=== PATIENT | female | born 1970 | race Caucasian/White ===

== ENCOUNTER 2017-06-08 17:51 | Emergency (ER) | payer OTHER ==
[~2017-06-08] VITALS: Ht 172.7 cm; Wt 77.1 kg
[2017-06-08 18:58] VITALS: BP 148/77
[2017-06-08] MEDS ORDERED: IBUPROFEN 600 MG TABLET PO ONE ×2 (19:30→20:04)
== END 2017-06-08 21:15 | disposition home or self-care (01) ==
LOC: ER 17:57
DX: M25.561 Pain in right knee (principal); J45.909 Unspecified asthma, uncomplicated; F17.200 Nicotine dependence, unspecified, uncomplicated
CPT/HCPCS: 73560; 99284; A4606; Z7610

== ENCOUNTER → 2020-08-16 | Emergency (ER) | payer OTHER ==
[~2020-08-16] VITALS: Ht 172.7 cm; Wt 75.7 kg
[~2020-08-16] MED LIST: KETOROLAC TROMETHAMINE 15 MG/ML VIAL ONE; POTASSIUM CHLORIDE 20 MEQ TAB.PRT.SR PO ONE
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
[2020-08-16] MEDS: KETOROLAC TROMETHAMINE INJ 30 MG/ML VIAL IM ONE (16:43)
[2020-08-16 17:00] LABS: BASOPHILS % (AUTO) 0.7 % (0.0-2.0); EOSINOPHILS % (AUTO) 3.8 % (0.0-6.0); HEMATOCRIT 43 % (33-45); HEMOGLOBIN 14.2 g/dL (11.5-14.8); LYMPHOCYTES # (AUTO) 1.3 /CMM (0.8-4.8); LYMPHOCYTES % (AUTO) 23.6 % (20.0-44.0); MEAN CORPUSCULAR HGB CONC 33 g/dl (31.0-36.0); MEAN CORPUSCULAR VOLUME 88 fL (82-100); MONOCYTES # (AUTO) 0.4 /CMM (0.1-1.30); MONOCYTES % (AUTO) 6.5 % (2.0-12.0); NEUTROPHILS # (AUTO) 3.6 /CMM (1.8-8.9); NEUTROPHILS % (AUTO) 65.4 % (43.0-81.0); PLATELET COUNT (AUTO) 257 /CMM (150-450); RED BLOOD CELL COUNT(AUTO) 4.94 MIL/uL (4.0-5.2); WHITE BLOOD COUNT (AUTO) 5.5 K/uL (4.3-11.0)
[2020-08-16 17:19] LABS: ALANINE AMINOTRANSFERASE 16 U/L (12-78); ALBUMIN 2.8 g/dL (3.4-5.0); ALKALINE PHOSPHATASE 121 U/L (46-116); ASPARTATE AMINOTRANSFERASE 17 U/L (15-37); BILIRUBIN,DIRECT 0.1 mg/dL (0.0-0.2); BILIRUBIN,TOTAL 0.4 mg/dL (0.2-1.0); CALCIUM, SERUM 8.8 mg/dL (8.5-10.1); CARBON DIOXIDE 31 mmol/L (21-32); CHLORIDE 106 mmol/L (98-107); GLUCOSE 111 mg/dL (74-106); POTASSIUM 3.1 mmol/L (3.5-5.1); SODIUM SERUM 143 mmol/L (136-145); TOTAL PROTEIN, SERUM 6.5 g/dL (6.4-8.2); UREA NITROGEN, BLOOD 7 mg/dL (7-18)
[2020-08-16] MEDS: POTASSIUM CHLORIDE 20 MEQ TAB.PRT.SR PO ONE (17:28)
[2020-08-16 17:48] LABS: LIPASE 166 U/L (73-393)
[2020-08-16 18:15] VITALS: BP 149/86
--- NOTE | 2020-08-16 18:16 | NUR ---
Patient discharged to home in stable condition. Written and verbal after care instructions given. Patient verbalizes understanding of instruction. The patient verbalized understanding.
== END | disposition home or self-care (01) ==
LOC: ER 15:57
DX: S20.212A Contusion of left front wall of thorax, initial encounter (principal); F17.200 Nicotine dependence, unspecified, uncomplicated; Z98.890 Other specified postprocedural states; W18.39XA Other fall on same level, initial encounter; Y93.89 Activity, other specified; Y92.89 Other specified places as the place of occurrence of the external cause; Y99.8 Other external cause status
CPT/HCPCS: 36415; 71100; 80048; 80076; 83690; 84484; 85025; 85730; 93005; 96372; 99285; 99406; J1885

== ENCOUNTER 2020-09-23 11:21 | Emergency (ER) | payer OTHER ==
[~2020-09-23] VITALS: Ht 172.7 cm; Wt 73.9 kg
--- NOTE | 2020-09-23 12:24 | NUR ---
PT REC;D TO ER SELF DROVE PT STATED C/O COUGH FOR 2 DAYS UA SENT TO LAB
--- NOTE | 2020-09-23 12:54 | NUR ---
AWAITING EVALUATION BY ER PROVIDER. po's given to pt
--- NOTE | 2020-09-23 13:24 | NUR ---
chest xray done vss
[2020-09-23] MEDS ORDERED: AZIT500T PO (13:51)
[2020-09-23] MEDS ORDERED: NAPR500T6 PO (13:55)
--- NOTE | 2020-09-23 13:55 | NUR ---
PT. VERBALIZED UNDERSTANDING OF AFTERCARE INSTRUCTIONS.
[2020-09-23 13:56] VITALS: BP 134/80
== END 2020-09-23 13:58 | disposition home or self-care (01) ==
LOC: ER 11:24
DX: J84.9 Interstitial pulmonary disease, unspecified (principal); J45.909 Unspecified asthma, uncomplicated; F17.210 Nicotine dependence, cigarettes, uncomplicated; Z98.890 Other specified postprocedural states
CPT/HCPCS: 71045-TC

== ENCOUNTER 2020-12-17 21:22 | Emergency (ER) | payer OTHER ==
[~2020-12-17] VITALS: Ht 172.7 cm; Wt 73.9 kg
[~2020-12-17 21:22] MED LIST changes: +AZIT500T PO; -KETOROLAC TROMETHAMINE 15 MG/ML VIAL ONE; +NAPR500T6 PO; -POTASSIUM CHLORIDE 20 MEQ TAB.PRT.SR PO ONE
--- NOTE | 2020-12-17 22:20 | NUR ---
CALLED FOR TRIAGE , NO ANSWER
[2020-12-18] MEDS ORDERED: ACETAMINOPHEN ES 500 MG TABLET PO ONE
[2020-12-18] MEDS ORDERED: HYDROCODONE/APAP 5/325MG TABLET PO ONE
[2020-12-18 00:04] LABS: BASOPHILS # (AUTO) 0.1 K/uL (0.0-0.2); BASOPHILS % (AUTO) 1.1 % (0.0-2.0); EOSINOPHILS % (AUTO) 5.3 % (0.0-6.0); HEMATOCRIT 44 % (33-45); HEMOGLOBIN 14.4 g/dL (11.5-14.8); LYMPHOCYTES # (AUTO) 2.2 K/uL (0.8-4.8); LYMPHOCYTES % (AUTO) 29.5 % (20.0-44.0); MEAN CORPUSCULAR HGB CONC 33 g/dl (31.0-36.0); MEAN CORPUSCULAR VOLUME 84 fL (82-100); MONOCYTES # (AUTO) 0.6 K/uL (0.1-1.30); NEUTROPHILS # (AUTO) 4.2 K/uL (1.8-8.9); NEUTROPHILS % (AUTO) 56.1 % (43.0-81.0); PLATELET COUNT (AUTO) 310 K/uL (150-450); RED BLOOD CELL COUNT(AUTO) 5.16 MIL/uL (4.0-5.2); WHITE BLOOD COUNT (AUTO) 7.5 K/uL (4.3-11.0)
[2020-12-18 00:21] LABS: ALBUMIN 3.7 g/dL (3.4-5.0); BILIRUBIN,DIRECT 0.1 mg/dL (0.0-0.2); BILIRUBIN,TOTAL 0.5 mg/dL (0.2-1.0); CALCIUM, SERUM 8.7 mg/dL (8.5-10.1); CREATININE 1.1 mg/dL (0.6-1.3); POTASSIUM 3.2 mmol/L (3.5-5.1); TOTAL PROTEIN, SERUM 7.8 g/dL (6.4-8.2)
--- NOTE | 2020-12-18 00:43 | NUR ---
URINE COLLECTED ANDSENT TO LAB
[2020-12-18] MEDS ORDERED: HYDROCODONE/APAP 5/325MG TABLET ONE (00:48)
[2020-12-18] MEDS ORDERED: ACETAMINOPHEN ES 500 MG TABLET ONE (00:48)
[2020-12-18] MEDS ORDERED: POTASSIUM CHLORIDE 20 MEQ TAB.PRT.SR PO ONE ×2 (01:00→01:44)
[2020-12-18 01:04] LABS: BILIRUBIN,URINE SMALL (NEGATIVE); COLOR,URINE YELLOW (YELLOW); LEUKOCYTE ESTERASE ,URINE NEGATIVE (NEGATIVE); NITRITE, URINE NEGATIVE (NEGATIVE); PH,URINE 5.5 (5.0-8.0); PROTEIN,URINE TRACE mg/dl (NEGATIVE); UGLUCOSE NEGATIVE (NEGATIVE)
[2020-12-18 01:21] LABS: BACTERIA,URINE Few /HPF (None Seen); RBC,URINE 0-2 /HPF (0-2); SQUAMOUS EPITHELIAL CELL,UR MOD /HPF (None Seen)
--- NOTE | 2020-12-18 02:30 | NUR ---
Patient is resting comfortably in bed with eyes closed. Easily aroused. VSS
--- NOTE | 2020-12-18 03:08 | NUR ---
FACESHEET AND CLINICALS FAXED TO [facility].
--- NOTE | 2020-12-18 04:30 | NUR ---
Patient is resting comfortably in bed with eyes closed. Easily aroused. VSS
--- NOTE | 2020-12-18 07:30 | NUR ---
THE PATIENT IS SLEEPING IN BED. EASILY AROUSABLE. WILL CONTINUE TO MONITOR THE PATIENT.
--- NOTE | 2020-12-18 08:38 | NUR ---
FOLLOWED UP WITH VERA MOSER. OHVAlicia MCCLAIN SUP REVIEWED AND STATED THAT PT IS NEGATIVE FOR SI AND HI SO NO CRITERIA FOR PLACEMENT.
--- NOTE | 2020-12-18 08:39 | NUR ---
CURRENTLY WAITING FOR OUR FRONT OFFICE SPECIALIST TO COME AND SPEAK TO PT. ETA IS [id number]
--- NOTE | 2020-12-18 09:05 | NUR ---
THE PATIENT ALERT AND ORIENTED X3. DENIES ANY DISTRESS. HAVING BREAKFAST AT THIS TIME.
--- NOTE | 2020-12-18 10:37 | NUR ---
TEACHING ASSOCIATE, JOSE ALEJANDRO, CALLED AND STATED THAT SHE SPOKE WITH CRISIS CLINICAN ART AND PT SHOULD BE MEDICATED FOR PSYCHOSIS BEFORE BEING EVALUATED BY CRISIS CLINICAN
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
--- NOTE | 2020-12-18 10:55 | NUR ---
Sliver Machine Operator note: SW contacted compressed gases tester, Lg Gutiérrez LCSW, , for evaluation. Pending evaluation later today. SW will remain available as needed.
--- NOTE | 2020-12-18 11:03 | NUR ---
THE PATIENT IN BED. ALERT AND ORIENTED X3. DENIES PAIN AT THIS TIME. RESPIRATION REGULAR AND UNLABORED. WILL CONTINUE TO MONITOR THE PATIENT.
--- NOTE | 2020-12-18 18:02 | NUR ---
CALLED AND LVM FOR SELIN, CRISIS CLINICAN
--- NOTE | 2020-12-18 18:14 | NUR ---
[facility] IS COMING TO EVALUATE PT
--- NOTE | 2020-12-18 19:41 | NUR ---
was seen by [facility] crisis team. clear for d/c
--- NOTE | 2020-12-18 19:51 | NUR ---
PT IS CLEAR FOR D/C. Patient given written and verbal discharge instructions. Patient verbalizes understanding of instructions. Patient is ambulatory with steady gait. Refuses offer of retirement placement. Patient given list of available shelters in surrounding area.
--- NOTE | 2020-12-18 19:55 | NUR ---
Patient discharged to home in stable condition. Written and verbal after care instructions given. Patient verbalizes understanding of instruction.
[2020-12-18 20:03] VITALS: BP 119/77
== END 2020-12-18 20:03 | disposition home or self-care (01) ==
LOC: ER 21:31
DX: F22 Delusional disorders (principal); F15.10 Other stimulant abuse, uncomplicated; F17.210 Nicotine dependence, cigarettes, uncomplicated; J45.909 Unspecified asthma, uncomplicated; Z98.890 Other specified postprocedural states; Z60.2 Problems related to living alone
CPT/HCPCS: 36415; 70450-TC; 80048-TC; 80076-TC; 81001; 84703-TC; 85025-TC; G0480

== ENCOUNTER 2022-08-30 11:47 | Emergency (ER) | payer OTHER ==
[~2022-08-30] VITALS: Ht 165.1 cm; Wt 81.6 kg
--- NOTE | 2022-08-30 12:00 | NUR ---
"Have been having abdominal pain since june. I have diverticulitis". The patient rates pain 7/10. Abdomen is soft and non-distended. Denies N/V at this time. The patient is attached to the monitor. Warm blanket provided for comfort. Will continue to monitor the patient.
--- NOTE | 2022-08-30 12:39 | NUR ---
IV LINE IS ESTABLISHED, BLOOD SPECIMEN COLLECTED AND SENT TO THE LAB. THE LINE IS SALINE LOCKED.
[2022-08-30 13:00] LABS: CREATININE 0.9 mg/dL (0.6-1.3); POTASSIUM 3.4 mmol/L (3.5-5.1)
[2022-08-30 13:08] LABS: ALBUMIN 3.4 g/dL (3.4-5.0); BILIRUBIN,DIRECT 0.1 mg/dL (0.0-0.2); BILIRUBIN,TOTAL 0.4 mg/dL (0.2-1.0)
[2022-08-30 13:10] LABS: BASOPHILS % (AUTO) 0.7 % (0.0-2.0); EOSINOPHILS % (AUTO) 3.4 % (0.0-6.0); HEMATOCRIT 44 % (33-45); HEMOGLOBIN 14.7 g/dL (11.5-14.8); LYMPHOCYTES # (AUTO) 1.3 K/uL (0.8-4.8); LYMPHOCYTES % (AUTO) 23.9 % (20.0-44.0); MEAN CORPUSCULAR HGB CONC 33 g/dl (31.0-36.0); MEAN CORPUSCULAR VOLUME 85 fL (82-100); MONOCYTES # (AUTO) 0.4 K/uL (0.1-1.30); NEUTROPHILS # (AUTO) 3.6 K/uL (1.8-8.9); PLATELET COUNT (AUTO) 226 K/uL (150-450); RED BLOOD CELL COUNT(AUTO) 5.16 MIL/uL (4.0-5.2); WHITE BLOOD COUNT (AUTO) 5.5 K/uL (4.3-11.0)
[2022-08-30] MEDS ORDERED: IOHEXOL-300 100 ML VIAL IV ONE (13:40)
[2022-08-30] MEDS ORDERED: IV NS 0.9% 250 ML IV ONE (13:41)
[2022-08-30] MEDS ORDERED: CT SWABBABLE VALVE TRANS SET 1 EA INFUS.SET MC ONE (13:41)
--- NOTE | 2022-08-30 13:43 | NUR ---
THE PATIENT IS TAKEN TO CT ON A GURNEY
--- NOTE | 2022-08-30 13:55 | NUR ---
the patient is back from [place] via [facility]
[2022-08-30] MEDS ORDERED: METR-147 PO (14:14)
[2022-08-30] MEDS ORDERED: CIPR500T5 PO (14:14)
--- NOTE | 2022-08-30 14:21 | NUR ---
IV removed. Catheter intact and site benign. Pressure and 4x4 applied to site. No bleeding noted.Patient discharged to home in stable condition. Written and verbal after care instructions given. Patient verbalizes understanding of instruction.
[2022-08-30 14:22] VITALS: BP 131/87
== END 2022-08-30 14:22 | disposition home or self-care (01) ==
LOC: ER 11:53
DX: R10.32 Left lower quadrant pain (principal); J45.909 Unspecified asthma, uncomplicated; F17.200 Nicotine dependence, unspecified, uncomplicated; Z98.890 Other specified postprocedural states; Z60.2 Problems related to living alone; Z79.899 Other long term (current) drug therapy
CPT/HCPCS: 99285; 74177; 85025; 80048; 83690; 80076; 36415; J7050; Q9967

== ENCOUNTER 2024-07-25 18:22 | Emergency (ER) | payer OTHER ==
[~2024-07-25] VITALS: Ht 172.7 cm; Wt 81.6 kg
[~2024-07-25 18:22] MED LIST changes: +CIPR500T5 PO; +METR-147 PO
[2024-07-25] MEDS: IV NS 0.9% 1,000 ML BAG IV ONE ×2 (19:17→23:32)
[2024-07-25] MEDS ORDERED: KETOROLAC TROMETHAMINE 15 MG/ML VIAL ONE (19:18)
[2024-07-25] MEDS: KETOROLAC TROMETHAMINE 15 MG/ML VIAL IV ONE (19:33)
[2024-07-25 19:44] LABS: BASOPHILS # (AUTO) 0.1 K/uL (0.0-0.2); BASOPHILS % (AUTO) 1.4 % (0.0-2.0); EOSINOPHILS # (AUTO) 0.1 K/uL (0.0-0.7); HEMATOCRIT 47 % (33-45); HEMOGLOBIN 16.1 g/dL (11.5-14.8); LYMPHOCYTES # (AUTO) 1.9 K/uL (0.8-4.8); LYMPHOCYTES % (AUTO) 27.1 % (20.0-44.0); MEAN CORPUSCULAR HEMOGLOBIN 30 PG (26.0-33.0); MEAN CORPUSCULAR HGB CONC 34 g/dl (31.0-36.0); MEAN CORPUSCULAR VOLUME 87 fL (82-100); MONOCYTES # (AUTO) 0.7 K/uL (0.1-1.30); MONOCYTES % (AUTO) 10.6 % (2.0-12.0); NEUTROPHILS # (AUTO) 4.1 K/uL (1.8-8.9); NEUTROPHILS % (AUTO) 58.9 % (43.0-81.0); PLATELET COUNT (AUTO) 331 K/uL (150-450); RED BLOOD CELL COUNT(AUTO) 5.37 MIL/uL (4.0-5.2); RED CELL DISTRIBUTION WIDTH 14.9 % (11.5-15.0)
[2024-07-25 19:54] LABS: CALCIUM, SERUM 9.5 mg/dL (8.5-10.1); CARBON DIOXIDE 32 mmol/L (21-32); CHLORIDE 100 mmol/L (98-107); CREATININE 1.3 mg/dL (0.6-1.3); GLUCOSE 108 mg/dL (74-106); POTASSIUM 4.5 mmol/L (3.5-5.1); SODIUM SERUM 138 mmol/L (136-145); UREA NITROGEN, BLOOD 15 mg/dL (7-18)
[2024-07-25 20:52] LABS: ALANINE AMINOTRANSFERASE 30 U/L (12-78); ALCOHOL, BLOOD < 3 mg/dL (0-10); ALKALINE PHOSPHATASE 111 U/L (46-116); ASPARTATE AMINOTRANSFERASE 20 U/L (15-37); BILIRUBIN,DIRECT 0.2 mg/dL (0.0-0.2); BILIRUBIN,TOTAL 0.6 mg/dL (0.2-1.0); TOTAL PROTEIN, SERUM 8.2 g/dL (6.4-8.2)
[2024-07-25 20:55] LABS: ACETAMINOPHEN <10 ug/ml (10-30)
[2024-07-26 00:30] LABS: APPEARANCE,URINE TURBID (CLEAR); BILIRUBIN,URINE 2+ (NEGATIVE); BLOOD, URINE NEGATIVE Ery/uL (NEGATIVE); COLOR,URINE DARK YELLOW (YELLOW); KETONES,URINE 1+ mg/dL (NEGATIVE); LEUKOCYTE ESTERASE ,URINE NEGATIVE (NEGATIVE); NITRITE, URINE POSITIVE (NEGATIVE); PH,URINE 5.5 (5.0-8.0); PROTEIN,URINE 2+ mg/dl (NEGATIVE); UGLUCOSE TRACE mg/dL (NEGATIVE)
[2024-07-26 00:35] LABS: ADD URINE CULTURE YES; BACTERIA,URINE Moderate /HPF (None Seen); SQUAMOUS EPITHELIAL CELL,UR Few /HPF (None Seen); URINE AMORPHOUS URATE Many /HPF (None Seen)
[2024-07-26 00:38] LABS: BARBITURATE, URINE NEGATIVE (NEGATIVE); CANNABINOID, URINE NEGATIVE (NEGATIVE); COCCAINE, URINE NEGATIVE (NEGATIVE); OPIATE, URINE NEGATIVE (NEGATIVE); PHENCYCLIDINE SCREEN,URINE NEGATIVE (NEGATIVE)
[2024-07-26 00:42] LABS: AMPHETAMINE, URINE POSITIVE (NEGATIVE); BENZODIAZEPINE, URINE POSITIVE (NEGATIVE)
[2024-07-26 10:13] VITALS: BP 115/80; TEMP 98.2; O2SAT 97
== END 2024-07-26 10:14 | disposition home or self-care (01) ==
LOC: ER 18:26
DX: F19.10 Other psychoactive substance abuse, uncomplicated (principal); F17.200 Nicotine dependence, unspecified, uncomplicated; M25.511 Pain in right shoulder; M25.512 Pain in left shoulder; R07.89 Other chest pain; F29 Unspecified psychosis not due to a substance or known physiological condition; G89.29 Other chronic pain; J45.909 Unspecified asthma, uncomplicated; Z59.02 Unsheltered homelessness; Z20.822 Contact with and (suspected) exposure to COVID-19
CPT/HCPCS: 99285; 96374; 96361; 93005; 71045; 85025; 80048; 80076; 81001; 36415; 84484 ×2; 87426; 80143; 80320; 80307; 87086; J7030 ×2; J1885; G0480